=== PATIENT | female | born 1985 | race Two or more races ===

== ENCOUNTER 2023-08-02 12:55 | Outpatient (REF) | payer OTHER, SELFPAY ==
--- NOTE | ~2023-08-02 | US_ITS ---
EXAMINATION: US PELVIS WITH TRANSVAGINAL CLINICAL INFORMATION: Endometriosis, pelvic pain, last menstrual period 2 days prior. COMPARISON: None available. TECHNIQUE: Ultrasound of the pelvis is performed using both transabdominal and transvaginal transducers along with Doppler. Transvaginal imaging is performed due to inadequate visualization transabdominally. FINDINGS: The uterus measures 10.1 x 4.6 x 5.1 cm. No discrete fibroids appreciated. Endometrial thickness is 12 mm. Small amount of free fluid in the pelvis. Left ovary measures 3.8 x 2.3 x 1.8 cm, volume 8.2 mL and is unremarkable. Right ovary measures 2.5 x 2.6 x 3.4 cm, volume 16 mL. Small amount of free fluid adjacent to the right ovary. Right ovary 1.8 x 2.0 x 1.7 cm complex cyst with thick myers and internal septations. Peripheral vascularity. US/US pelvic and transvaginal IMPRESSION: 1. Right ovary 2.0 cm complex cyst with thick myers and internal septations. Peripheral vascularity. Recommend follow-up ultrasound in 6-8 weeks. 2. Endometrial thickness is 12 mm. 3. Small amount of free fluid in the pelvis.
== END 2023-08-02 12:56 | disposition home or self-care (01) ==
LOC: HO.UMASIMG 12:55
PROVIDERS: Visit Provider Nurse Practitioner Women's Health
DX: N80.9 Endometriosis, unspecified (principal)
CPT/HCPCS: 76830; 76856